=== PATIENT | male | born 1975 | race Caucasian/White ===

== ENCOUNTER 2021-02-26 04:47 | Emergency (ER) | payer MEDICAID ==
[~2021-02-26] VITALS: Ht 188 cm; Wt 95.5 kg
[2021-02-26 05:06] VITALS: BP 135/91
[2021-02-26] MEDS ORDERED: LORazepam 1 MG TABLET PO ONE (05:15)
[2021-02-26] MEDS: OLANZapine 5 MG TABLET PO ONE ×3 (05:27→05:35)
== END 2021-02-26 06:41 | disposition home or self-care (01) ==
LOC: EMS 04:47
DX: F19.10 Other psychoactive substance abuse, uncomplicated (principal); F31.9 Bipolar disorder, unspecified; M19.90 Unspecified osteoarthritis, unspecified site; G43.909 Migraine, unspecified, not intractable, without status migrainosus; F20.9 Schizophrenia, unspecified; B19.20 Unspecified viral hepatitis C without hepatic coma; F90.9 Attention-deficit hyperactivity disorder, unspecified type; F17.210 Nicotine dependence, cigarettes, uncomplicated; F11.20 Opioid dependence, uncomplicated; F12.90 Cannabis use, unspecified, uncomplicated
CPT/HCPCS: 99283

== ENCOUNTER 2021-03-02 15:12 | Emergency (ER) | payer MEDICAID ==
[~2021-03-02] VITALS: Ht 188 cm; Wt 100.0 kg
[2021-03-02] MEDS ORDERED: FAMOTIDINE 20 MG TABLET PO ONE (16:15)
[2021-03-02 16:19] LABS: BASOPHILS % (AUTO) 0.8 % (0.0-2.0); EOSINOPHILS % (AUTO) 2.8 % (1.0-6.0); HEMATOCRIT 45.5 % (41-53); HEMOGLOBIN 14.8 g/dL (13.5-17.5); LYMPHOCYTES # (AUTO) 1.5 K/uL (1.0-4.8); LYMPHOCYTES % (AUTO) 38.1 % (22.0-44.0); MEAN CORPUSCULAR HEMOGLOBIN 29.8 pg (26.0-34.0); MEAN CORPUSCULAR HGB CONC 32.5 G/dL (31.0-37.0); MEAN CORPUSCULAR VOLUME 92 fL (80-100); MONOCYTES # (AUTO) 0.3 K/uL (0.1-1.0); NEUTROPHILS % (AUTO) 50.3 % (40.0-70.0); PLATELET COUNT (AUTO) 191 K/uL (150-450); RED BLOOD CELL COUNT(AUTO) 4.96 MIL/uL (4.50-5.90); RED CELL DISTRIBUTION WIDTH 13.9 % (11.5-14.5)
[2021-03-02 16:54] LABS: ANION GAP 8 mmol/L (8-16); CALCIUM, TOTAL 9.5 mg/dL (8.8-10.5); CARBON DIOXIDE 31 mmol/L (22-29); CHLORIDE 105 mmol/L (98-107); CREATININE 1.26 mg/dL (0.60-1.30); GLOMERULAR FILTR. RATE CALC > 60 mL/min (>60); GLUCOSE,RANDOM 94 mg/dL (70-110); POTASSIUM 4.3 mmol/L (3.5-5.1); SODIUM SERUM 144 mmol/L (136-145); UREA NITROGEN, BLOOD 13 mg/dL (7-18)
[2021-03-02 16:59] LABS: ALANINE AMINOTRANSFERASE 25 U/L (12-78); ALBUMIN 3.9 g/dL (3.4-5.0); ALKALINE PHOSPHATASE 62 U/L (46-116); ASPARTATE AMINOTRANSFERASE 20 U/L (15-37); BILIRUBIN,TOTAL 0.4 mg/dL (0.1-1.0); LIPASE 60 U/L (73-393); TOTAL PROTEIN, SERUM 7.6 g/dL (6.4-8.2)
[2021-03-02 18:14] VITALS: BP 110/75
== END 2021-03-02 18:28 | disposition left against medical advice (07) ==
LOC: EMS 15:16
DX: K27.9 Peptic ulcer, site unspecified, unspecified as acute or chronic, without hemorrhage or perforation (principal); F11.10 Opioid abuse, uncomplicated; M79.10 Myalgia, unspecified site; F31.9 Bipolar disorder, unspecified; G43.909 Migraine, unspecified, not intractable, without status migrainosus; F20.9 Schizophrenia, unspecified; F17.210 Nicotine dependence, cigarettes, uncomplicated; F12.90 Cannabis use, unspecified, uncomplicated
CPT/HCPCS: 36415; 80053; 83690; 85025; 99283; G0480

== ENCOUNTER 2021-03-20 19:25 | Inpatient (IN) | payer MEDICAID ==
[~2021-03-20] VITALS: Ht 188 cm; Wt 100.0 kg
[2021-03-20 20:17] LABS: BASOPHILS % (AUTO) 0.5 % (0.0-2.0); EOSINOPHILS % (AUTO) 2.8 % (1.0-6.0); HEMATOCRIT 41.2 % (41-53); HEMOGLOBIN 13.9 g/dL (13.5-17.5); LYMPHOCYTES % (AUTO) 26.4 % (22.0-44.0); MEAN CORPUSCULAR HEMOGLOBIN 30.3 pg (26.0-34.0); MEAN CORPUSCULAR HGB CONC 33.7 G/dL (31.0-37.0); MEAN CORPUSCULAR VOLUME 90 fL (80-100); MONOCYTES # (AUTO) 0.5 K/uL (0.1-1.0); MONOCYTES % (AUTO) 6.6 % (2.0-9.0); NEUTROPHILS # (AUTO) 4.9 K/uL (1.8-7.7); NEUTROPHILS % (AUTO) 63.7 % (40.0-70.0); RED BLOOD CELL COUNT(AUTO) 4.58 MIL/uL (4.50-5.90)
[2021-03-20 20:32] LABS: ANION GAP 9 mmol/L (8-16); CALCIUM, TOTAL 9.1 mg/dL (8.8-10.5); CARBON DIOXIDE 24 mmol/L (22-29); CHLORIDE 102 mmol/L (98-107); CREATININE 0.69 mg/dL (0.60-1.30); GLOMERULAR FILTR. RATE CALC > 60 mL/min (>60); GLUCOSE,RANDOM 121 mg/dL (70-110); POTASSIUM 3.7 mmol/L (3.5-5.1); SODIUM SERUM 135 mmol/L (136-145); UREA NITROGEN, BLOOD 15 mg/dL (7-18)
[2021-03-20 20:38] LABS: ALANINE AMINOTRANSFERASE 91 U/L (12-78); ALBUMIN 3.8 g/dL (3.4-5.0); ALKALINE PHOSPHATASE 93 U/L (46-116); ASPARTATE AMINOTRANSFERASE 36 U/L (15-37); BILIRUBIN,TOTAL 0.6 mg/dL (0.1-1.0); PLATELET COUNT (AUTO) 185 K/uL (150-450); TOTAL PROTEIN, SERUM 7.7 g/dL (6.4-8.2)
[2021-03-20 22:08] LABS: AMPHET/METH SCREEN,URINE POSITIVE (NEGATIVE); BARBITURATE SCREEN, URINE NEGATIVE (NEGATIVE); BENZODIAZEPINES SCREEN,URINE NEGATIVE (NEGATIVE); CANNABINOID SCREEN,URINE POSITIVE (NEGATIVE); COCAINE SCREEN,URINE NEGATIVE (NEGATIVE); METHADONE SCREEN, URINE NEGATIVE (NEGATIVE); OPIATE SCREEN,URINE POSITIVE (NEGATIVE)
[2021-03-20 22:12] LABS: PHENCYCLIDINE SCREEN,URINE NEGATIVE (NEGATIVE)
[2021-03-20 22:33] LABS: COVID AG,FIA SOURCE NASOPHARYNGEAL
[2021-03-20] MEDS ORDERED: ZOLPIDEM TARTRATE 10 MG TABLET PO PRN (23:30)
[2021-03-20 23:58] LABS: APPEARANCE,URINE CLEAR (CLEAR); BILIRUBIN,URINE NEGATIVE (NEGATIVE); GLUCOSE, URINE (UA) NEGATIVE (NEGATIVE); KETONES,URINE NEGATIVE (NEGATIVE); LEUKOCYTE ESTERASE ,URINE NEGATIVE (NEGATIVE); NITRATE,URINE NEGATIVE (NEGATIVE); OCCULT BLOOD,URINE NEGATIVE (NEGATIVE); PROTEIN,URINE NEGATIVE (NEGATIVE)
[2021-03-21] MEDS: HALOPERIDOL 5 MG TABLET PO PRN (01:55)
[2021-03-21] MEDS: LORazepam 2 MG TABLET PO PRN (01:55)
[2021-03-21 03:08] LABS: CHOL/HDL RATIO 2.7 (4.2-7.3); CHOLESTEROL 142 mg/dL (131-200); HDL CHOLESTEROL 52 mg/dL (40-60); LDL CHOL (CALC.) 80 mg/dL (0-130); TRIGLYCERIDES 48 mg/dL (15-150)
[2021-03-21 13:43] VITALS: BP 108/62
[2021-03-21 16:15] VITALS: BP 109/72
[2021-03-21] MEDS ORDERED: INFLUENZA VIRUS VACCINE QVS 2021-22 (6MO+)/PF 60 MCG/0.5 ML SYRINGE IM. ONE (16:30)
[2021-03-22] VITALS (7 sets, daily range): BP systolic 105–118; BP diastolic 62–79
[2021-03-22] MEDS ORDERED: CloNIDine HCL 0.1 MG TABLET PO PRN (05:45)
[2021-03-22] MEDS ORDERED: LOPERAMIDE HCL 2 MG CAPSULE PO PRN ×2 (05:45→15:45)
[2021-03-22] MEDS ORDERED: MAG HYDROX/AL HYDROX/SIMETH ES 30 ML SUSPENSION UDCUP PO PRN ×2 (05:45→15:45)
[2021-03-22] MEDS ORDERED: DOCUSATE SODIUM 100 MG CAPSULE PO PRN (05:45)
[2021-03-22] MEDS ORDERED: PETROLATUM,WHITE 28 GM JELLY TP PRN (05:45)
[2021-03-22] MEDS ORDERED: ONDANSETRON HCL 4 MG TABLET PO PRN (05:45)
[2021-03-22] MEDS ORDERED: ACETAMINOPHEN 325 MG TABLET PO PRN (05:45)
[2021-03-22] MEDS ORDERED: MAGNESIUM HYDROXIDE SUSPENSION 30 ML UDCUP PO PRN (05:45)
[2021-03-22] MEDS ORDERED: ALBUTEROL SULFATE HFA 90 MCG/PUFF 8 GM INHALER IH PRN (05:45)
[2021-03-22] MEDS ORDERED: GuaiFENesin/D-METHORPHAN [SUGAR-FREE] 200-20MG/10 ML SYRUP UDCUP PO PRN ×2 (05:45→15:45)
[2021-03-22] MEDS ORDERED: NICOTINE 14 MG/24 HOUR PATCH TD PRN (05:45)
[2021-03-22] MEDS: LORazepam 2 MG TABLET PO PRN (09:22)
[2021-03-22] MEDS: CEPHALEXIN MONOHYDRATE 500 MG CAPSULE PO SCH ×2 (13:23→16:47)
[2021-03-22] MEDS ORDERED: CYANOCOBALAMIN 1,000 MCG/ML VIAL IM ONE (15:45)
[2021-03-22] MEDS ORDERED: HydrOXYzine PAMOATE 50 MG CAPSULE PO PRN ×2 (15:45)
[2021-03-22] MEDS ORDERED: IBUPROFEN 600 MG TABLET PO PRN (15:45)
[2021-03-22] MEDS: MULTIVITAMINS WITH MINERALS, THERAPEUTIC TABLET PO SCH (16:47)
[2021-03-22] MEDS: CloNIDine HCL 0.1 MG TABLET PO SCH ×2 (16:47→21:27)
[2021-03-22] MEDS: THIAMINE 100 MG TABLET PO SCH (16:47)
[2021-03-22] MEDS: FOLIC ACID 1 MG TABLET PO SCH (16:47)
[2021-03-22] MEDS: SULFAMETHOX/TRIMETH DS 800-160 MG/TABLET PO SCH (16:47)
[2021-03-22] MEDS: DIVALPROEX SODIUM 500 MG ER TABLET PO SCH (16:49)
[2021-03-22] MEDS: OLANZapine 5 MG RAPDIS TABLET PO SCH (20:02)
[2021-03-22] MEDS: IBUPROFEN 400 MG TABLET PO PRN (23:21)
[2021-03-22] MEDS: CloNIDine HCL 0.1 MG TABLET PO PRN (23:54)
[2021-03-23] VITALS (7 sets, daily range): BP systolic 102–134; BP diastolic 60–79
[2021-03-23] MEDS: CloNIDine HCL 0.1 MG TABLET PO SCH ×4 (06:49→21:19)
[2021-03-23] MEDS: SULFAMETHOX/TRIMETH DS 800-160 MG/TABLET PO SCH ×2 (08:10→17:13)
[2021-03-23] MEDS: MULTIVITAMINS WITH MINERALS, THERAPEUTIC TABLET PO SCH (08:10)
[2021-03-23] MEDS: DIVALPROEX SODIUM 500 MG ER TABLET PO SCH ×2 (08:10→17:13)
[2021-03-23] MEDS: CEPHALEXIN MONOHYDRATE 500 MG CAPSULE PO SCH ×3 (08:10→17:13)
[2021-03-23] MEDS: FOLIC ACID 1 MG TABLET PO SCH (08:10)
[2021-03-23] MEDS: THIAMINE 100 MG TABLET PO SCH ×2 (08:10→17:13)
[2021-03-23] MEDS: HALOPERIDOL 5 MG TABLET PO PRN (13:36)
[2021-03-23] MEDS: OLANZapine 5 MG RAPDIS TABLET PO SCH (21:19)
[2021-03-24] VITALS (7 sets, daily range): BP systolic 102–110; BP diastolic 67–74
[2021-03-24] MEDS: CloNIDine HCL 0.1 MG TABLET PO PRN (01:40)
[2021-03-24] MEDS: IBUPROFEN 400 MG TABLET PO PRN (01:41)
[2021-03-24] MEDS: CloNIDine HCL 0.1 MG TABLET PO SCH ×4 (06:00→21:20)
[2021-03-24] MEDS: DIVALPROEX SODIUM 500 MG ER TABLET PO SCH ×2 (09:00→17:17)
[2021-03-24] MEDS: SULFAMETHOX/TRIMETH DS 800-160 MG/TABLET PO SCH ×2 (09:21→17:17)
[2021-03-24] MEDS: CEPHALEXIN MONOHYDRATE 500 MG CAPSULE PO SCH ×3 (09:21→17:17)
[2021-03-24] MEDS: THIAMINE 100 MG TABLET PO SCH ×2 (09:21→17:17)
[2021-03-24] MEDS: MULTIVITAMINS WITH MINERALS, THERAPEUTIC TABLET PO SCH (09:21)
[2021-03-24] MEDS: FOLIC ACID 1 MG TABLET PO SCH (09:21)
[2021-03-24] MEDS: BUPRENORPHINE HCL/NALOXONE HCL 8-2 MG SUBLINGUAL TABLET SL SCH (12:21)
[2021-03-24] MEDS: OLANZapine 5 MG RAPDIS TABLET PO SCH (21:00)
[2021-03-25 06:22] VITALS: BP 105/70
[2021-03-25] MEDS: CloNIDine HCL 0.1 MG TABLET PO SCH ×3 (06:23→16:07)
[2021-03-25 06:29] LABS: GLUCOMETER DEV NAME(LOC) BV2S.; GLUCOSE,POINT OF CARE 90 MG/DL (70-110)
[2021-03-25 08:15] VITALS: BP 115/71
[2021-03-25 08:16] VITALS: BP 115/71
[2021-03-25] MEDS: FOLIC ACID 1 MG TABLET PO SCH (08:53)
[2021-03-25] MEDS: DIVALPROEX SODIUM 500 MG ER TABLET PO SCH ×2 (08:54→16:07)
[2021-03-25] MEDS: SULFAMETHOX/TRIMETH DS 800-160 MG/TABLET PO SCH ×2 (08:54→16:08)
[2021-03-25] MEDS: THIAMINE 100 MG TABLET PO SCH ×2 (08:54→16:07)
[2021-03-25] MEDS: MULTIVITAMINS WITH MINERALS, THERAPEUTIC TABLET PO SCH (08:54)
[2021-03-25] MEDS: CEPHALEXIN MONOHYDRATE 500 MG CAPSULE PO SCH ×3 (08:54→16:08)
[2021-03-25] MEDS: BUPRENORPHINE HCL/NALOXONE HCL 8-2 MG SUBLINGUAL TABLET SL SCH (08:55)
[2021-03-25 12:20] VITALS: BP 104/60
[2021-03-25] MEDS ORDERED: OLAN5TAB94 PO (15:14)
[2021-03-25] MEDS ORDERED: DIVA-112 PO (15:14)
[2021-03-25] MEDS ORDERED: CEPH500C3 PO (15:15)
[2021-03-25] MEDS ORDERED: SULF-261 PO (15:16)
[2021-03-25 16:18] VITALS: BP 112/71
[2021-03-25] MEDS: OLANZapine 5 MG RAPDIS TABLET PO SCH (20:51)
== END 2021-03-25 18:00 | disposition home or self-care (01) | DRG 750 ==
LOC: EMS 19:27 → B2S 03-21 09:50
PROVIDERS: ADMIT Psychiatry & Neurology Child & Adolescent Psychiatry; ATTEND Psychiatry & Neurology Child & Adolescent Psychiatry
DX: F20.0 Paranoid schizophrenia (principal); E87.1 Hypo-osmolality and hyponatremia; K74.60 Unspecified cirrhosis of liver; B19.20 Unspecified viral hepatitis C without hepatic coma; E11.9 Type 2 diabetes mellitus without complications; Z59.00 Homelessness unspecified; Z20.822 Contact with and (suspected) exposure to COVID-19; F15.99 Other stimulant use, unspecified with unspecified stimulant-induced disorder; F12.99 Cannabis use, unspecified with unspecified cannabis-induced disorder; F11.99 Opioid use, unspecified with unspecified opioid-induced disorder; G40.909 Epilepsy, unspecified, not intractable, without status epilepticus; J45.909 Unspecified asthma, uncomplicated; M19.90 Unspecified osteoarthritis, unspecified site; F17.210 Nicotine dependence, cigarettes, uncomplicated; F90.9 Attention-deficit hyperactivity disorder, unspecified type; F31.9 Bipolar disorder, unspecified; F41.9 Anxiety disorder, unspecified; Z72.89 Other problems related to lifestyle; Z79.899 Other long term (current) drug therapy; Z28.21 Immunization not carried out because of patient refusal; Z79.84 Long term (current) use of oral hypoglycemic drugs; G43.909 Migraine, unspecified, not intractable, without status migrainosus
CPT/HCPCS: 80053; 80061; 81003; 82962; 85025; 90686; 99285; G0480; J3420; Q0162